=== PATIENT | male | born 1950 | race Two or more races ===

== ENCOUNTER 2019-01-05 20:39 | Inpatient (IN) | payer OTHER ==
[2019-01-05] MEDS ORDERED: DIPHTH,PERTUSS(ACELL),TET 0.5 ML DISP.SYRIN IM ONE ×2 (21:08→21:26)
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
[2019-01-05] MEDS ORDERED: ASPIRIN 81 MG CHEWABLE TABLETS PO ONE (21:30)
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
[2019-01-05 22:15] LABS: BASO % 0.3 % (0-2.0); EOS % 1.8 % (0-4.5); HEMATOCRIT 42.9 % (35.4-49); HEMOGLOBIN 13.7 GM/dL (11.7-16.9); LYMPH % 20.6 % (8-40); MCH 26.5 pg (25.7-33.7); MEAN CELL VOLUME 82.9 fl (80-96); MONO % 7.3 % (3.8-10.2); PLATELET COUNT 196 K/MM3 (134-434); RBC 5.17 M/mm3 (4.00-5.60); RDW 15.4 % (11.9-15.9); WHITE BLOOD COUNT 6.9 K/mm3 (4.0-10.0)
[2019-01-05 22:39] LABS: ALBUMIN 4.2 g/dl (3.4-5.0); ALK PHOS 102 U/L (45-117); ANION GAP 6 MMOL/L (8-16); BLOOD UREA NITROGEN 16.9 mg/dL (7-18); CALCIUM 8.9 mg/dL (8.5-10.1); CHLORIDE 109 mmol/L (98-107); CO2 28 mmol/L (21-32); CREATININE 1.1 mg/dL (0.55-1.3); GLUCOSE,RANDOM 142 mg/dL (74-106); MAGNESIUM 2.1 mg/dL (1.8-2.4); POTASSIUM 4.4 mmol/L (3.5-5.1); SGOT/AST 38 U/L (15-37); SGPT/ALT 58 U/L (13-61); SODIUM 143 mmol/L (136-145); TOT PROT 7.5 g/dl (6.4-8.2)
[2019-01-05 22:54] LABS: INR 1.06 (0.83-1.09); PROTHROMBIN TIME (PATIENT) 12.5 SEC (9.7-13.0)
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
[2019-01-06] MEDS ORDERED: ACETAMINOPHEN 325 MG TABLET (FP) PO ONE (01:00)
[2019-01-06] MEDS ORDERED: ACETAMINOPHEN 325 MG TABLET (FP) ONE (01:30)
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
[2019-01-06 03:26] VITALS: BMI 26.4
[2019-01-06 07:17] VITALS: TEMP 97.8
[2019-01-06] MEDS ORDERED: ACETAMINOPHEN 325 MG TABLET (FP) PO PRN (09:26)
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
[2019-01-06] MEDS ORDERED: TAMSULOSIN HCL 0.4 MG CAP PO SCH (10:00)
[2019-01-06] MEDS ORDERED: PATIENT'S OWN MEDICATION (NON-FORMULARY) (Canagliflozin [Invokana] 300 MG) PO SCH (10:00)
[2019-01-06] MEDS ORDERED: RANOLAZINE E.R. 500 MG TABLET (FP) PO SCH (10:00)
[2019-01-06] MEDS ORDERED: ASPIRIN 81 MG CHEWABLE TABLETS PO SCH (10:00)
[2019-01-06] MEDS ORDERED: sitaGLIPtin PHOSPHATE 100 MG TABLET (FP) PO SCH (10:00)
[2019-01-06] MEDS ORDERED: LOSARTAN POTASSIUM 25 MG TABLET PO SCH (10:00)
--- NOTE | 2019-01-06 10:13 | EKG ---
Test Reason : Blood Pressure : / mmHG Vent. Rate : 072 BPM Atrial Rate : 072 BPM P-R Int : 176 ms QRS Dur : 090 ms QT Int : 398 ms P-R-T Axes : 007 -22 011 degrees QTc Int : 435 ms POOR DATA QUALITY, INTERPRETATION MAY BE ADVERSELY AFFECTED NORMAL SINUS RHYTHM NORMAL ECG WHEN COMPARED WITH ECG OF 09-NOV-2015 14:20, NO SIGNIFICANT CHANGE WAS FOUND Confirmed by DAVE CEVALLOS, KENISHA ([id number]) on 01/06/2019 10:13:38 AM Referred By: Confirmed By:KENISHA ACOSTA MD
[2019-01-06 11:59] VITALS: BP 120/70; PULSE 66
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
--- NOTE | 2019-01-06 12:31 | CON.NEURO ---
Consult Consult Specialty:: Shorty Referred by:: ER - History of Present Illness History of Present Illness: this is a very pleasant 68-year-old right-handed Greek-speaking man with history of coronary artery disease diabetes high cholesterol presents to the hospital for episode of fall questionable loss of consciousness no seizure-like activity no chest pain or palpitation. Patient had a CAT scan of the headache reviewed the CAT scan which showed no evidence of acute pathology. Patient denies any recent travel there is no family history of seizure since admission to the tablet 3 patient has been stable with no chest pain no recurrence of his symptoms. - History Source History Provided By: Patient, Medical Record - Past Medical History Cardio/Vascular: Yes: CAD, HTN, IL (past history of IL) Renal/: Yes: BPH Endocrine: Yes: Diabetes Mellitus - Alcohol/Substance Use Hx Alcohol Use: No - Smoking History Smoking history: Never smoked Have you smoked in the past 12 months: No If you are a former smoker, when did you quit?: 15 - Social History ADL: Independent History of Recent Travel: No Home Medications - Allergies Allergies/Adverse Reactions: Allergies Allergy/AdvReac Type Severity Reaction Status Date / Time No Known Allergies Allergy Verified 01/05/19 21:10 - Home Medications Home Medications: Ambulatory Orders Aspirin [ASA -] 81 mg PO DAILY 11/09/15 Atorvastatin Ca [Lipitor] 40 mg PO HS 11/09/15 Carvedilol [Coreg] 25 mg PO BID 11/09/15 Cholecalciferol (Vitamin D3) [Vitamin D3] 50,000 unit PO DAILY 11/09/15 Glipizide Xl [Glucotrol Xl -] 10 mg PO DAILY 11/09/15 Metformin HCl [Glucophage] 1,000 mg PO BID 11/09/15 Ranolazine [Ranexa] 500 mg PO BID 11/09/15 Sitagliptin Phosphate [Januvia] 100 mg PO DAILY 11/09/15 Tamsulosin HCl [Flomax -] 0.4 mg PO DAILY 11/09/15 Acetaminophen [Tylenol .Regular Strength -] 650 mg PO Q4H PRN tablet 01/06/19 Canagliflozin [Invokana] 300 mg PO DAILY #30 tab 01/06/19 Losartan Potassium 0 mg PO DAILY 01/06/19 Family Disease History - Family Disease History Family History: Denies (seizure or stroke) Review of Systems - Review of Systems Constitutional: reports: No Symptoms Eyes: reports: No Symptoms HENT: reports: No Symptoms Neurological: reports: Headache, Incoordination, Numbness, Parasthesia Physical Exam-Neuro Vital Signs: Vital Signs Temperature 97.8 F 01/06/19 05:58 Pulse Rate 66 01/06/19 09:25 Respiratory Rate 18 01/06/19 09:00 Blood Pressure 120/70 01/06/19 09:25 O2 Sat by Pulse Oximetry (%) 98 01/06/19 02:47 Constitutional: Yes: Well Nourished Neck: Yes: WNL Labs: CBC, BMP 01/05/19 22:00 01/05/19 22:00 INR, PTT INR 1.06 (0.83-1.09) 01/05/19 22:00 - Neuro Exam Level Of Consciousness: Yes: Oriented to Person, Oriented to Place, Oriented to Time Eyes: Yes: PERRLA Speech: WNL Dominant Hand: Right Cranial Nerves II-XII Intact: Yes Gag: Present DTR's: 0 Right Tricep, 0 Left Brachioradialis, 0 Right Brachioradialis, 1+ Left Bicep, 1+ Right Bicep Babinski: Absent Response to light touch: Normal Response to pain prick: Normal Response to temperature: Normal Response to vibration: Normal Motor Strength: 3/5: Left Arm, Right Arm, Left Leg, Right Leg Gait: Normal Imaging - Results Cat Scan: Image Reviewed Problem List - Problems (1) Atypical syncope Assessment/Plan: neurologically patient is intact Patient can be discharged home if cleared by cardiology Patient will need neurological follow-up with MRI of the brain and EEG Check C-peptide Neurological differential diagnoses: near-syncope/to rule out cardiac arrhythmia /TIA Thank you very much for allowing me to be part of this patient medical care Code(s): R55 - SYNCOPE AND COLLAPSE
[2019-01-06] MEDS ORDERED: ATORVASTATIN CA 40 MG TABLET (FP) PO SCH (22:00)
== END 2019-01-06 12:28 | disposition home or self-care (01) | DRG 204 ==
LOC: JER 20:39 → JERBED 01-06 00:37 → J4W 01-06 02:39
PROVIDERS: ADMIT Family Medicine; ATTEND Family Medicine
DX: R55 Syncope and collapse (principal); I10 Essential (primary) hypertension; E11.9 Type 2 diabetes mellitus without complications; E78.5 Hyperlipidemia, unspecified; N40.0 Benign prostatic hyperplasia without lower urinary tract symptoms; I25.10 Atherosclerotic heart disease of native coronary artery without angina pectoris
CPT/HCPCS: 36415; 70450-TC; 71046-TC-FY; 80053; 82550; 82553; 82962; 83735; 84484; 85025; 85610; 90715; 93005; 93010; 99285-25

== ENCOUNTER → 2024-02-23 | Day surgery (SDC) | payer OTHER | END | disposition home or self-care (01) | LOC: JRADIR 08:11 | PROVIDERS: ATTEND Internal Medicine Endocrinology, Diabetes & Metabolism | PROC: 0G9K3ZX Drainage of Thyroid Gland, Percutaneous Approach, Diagnostic (ICD-10-PCS; principal; 2024-02-23) | DX: E04.1 Nontoxic single thyroid nodule (principal) | CPT/HCPCS: 10005; 76942; 88173; 88305-TC ==

== ENCOUNTER → 2025-01-10 | Day surgery (SDC) | payer OTHER | END | disposition home or self-care (01) | LOC: JRADIR 09:05 | PROVIDERS: ATTEND Internal Medicine Endocrinology, Diabetes & Metabolism | PROC: 0G9H3ZX Drainage of Right Thyroid Gland Lobe, Percutaneous Approach, Diagnostic (ICD-10-PCS; principal; 2025-01-10) | DX: E04.1 Nontoxic single thyroid nodule (principal); Z53.8 Procedure and treatment not carried out for other reasons | CPT/HCPCS: 10005; 76942 ==